=== PATIENT | female | born 1990 | race Caucasian/White ===

== ENCOUNTER 2018-02-23 03:15 | Emergency (ER) | payer OTHER ==
[~2018-02-23] VITALS: Ht 149.9 cm; Wt 51.3 kg
[2018-02-23 03:18] VITALS: BP 130/95
--- NOTE | 2018-02-23 03:27 | NUR ---
Deng sargent in [facility] - 02/23/18 at 0327 by MICKI PT TAKEN TO BED 9
--- NOTE | 2018-02-23 03:31 | NUR ---
PT TAKEN TO BED 9
--- NOTE | 2018-02-23 03:38 | NUR ---
27/F CAME IN ED WITH SIGNIFICANT OTHER, C/O 10/10 HEADACHE WITH ASSOCIATED N/V/D, X3 DAYS. PT REPORTS HAVING SIMILAR EPISODES OF HEADACHE IN THE PAST. PT REPORTS "HOT FLASHES" AND EXCESSIVE SWEATING AT NIGHT. PT ALSO REPORTS POSSIBLE STUCK TAMPON. LMP 02/20/18, PT HAS A CONTRACEPTIVE IMPLANT ON LUE. PT REPORTS TAKING EXCEDRIN 7 HRS AGO WITH LITTLE RELIEF. LUNG SOUNDS CLEAR BL. BS ACTIVE X4, ABD SOFT ROUND NONTENDER. PT DENIES MED HX, RX. ER MD MADE AWARE.
--- NOTE | 2018-02-23 03:54 | NUR ---
Dr. Quiñones evalauting patient at bedside.
--- NOTE | 2018-02-23 03:54 | NUR ---
Chapperoned during pelvic exam at this time
[2018-02-23] MEDS ORDERED: DICYCLOMINE 20 MG/2 ML VIAL IM ONE (04:00)
[2018-02-23] MEDS ORDERED: ONDANSETRON 4 MG ODT PO ONE (04:00)
[2018-02-23] MEDS ORDERED: KETOROLAC 30 MG/ML VIAL IM ONE (04:00)
--- NOTE | 2018-02-23 04:40 | NUR ---
PT RESTING COMFORTABLY IN BED, REPORTS 5/10 HEADACHE, DENIES SUPRAPUBIC CRAMPING, VSS, ER MD MADE AWARE. ALL NEEDS MET.
[2018-02-23] MEDS ORDERED: HYDROcodone/APAP 5/325 MG 1 TAB TAB PO ONE (04:50)
--- NOTE | 2018-02-23 05:28 | NUR ---
Patient discharged with v/s stable. Written and verbal after care instructions given and explained. Patient alert, oriented and verbalized understanding of instructions. Ambulatory with steady gait. All questions addressed prior to discharge. ID band removed. Patient advised to follow up with PMD. Rx of zofran odt, bentyl, norco 5-325 given. Patient educated on indication of medication including possible reaction and side effects. Opportunity to ask questions provided and answered.
--- NOTE | 2018-02-23 05:28 | NUR ---
Note katiaone in EDM - 02/23/18 at 0532 by DEION Patient discharged with v/s stable. Written and verbal after care instructions given and explained. Patient alert, oriented and verbalized understanding of instructions. Ambulatory with steady gait. All questions addressed prior to discharge. ID band removed. Patient advised to follow up with PMD. Rx of KEFLEX given. Patient educated on indication of medication including possible reaction and side effects. Opportunity to ask questions provided and answered. Pt and pt's caregiver instructed to follow up with neurosurgeon with printed results and CD tomorrow.
[2018-02-23 05:29] VITALS: BP 110/56
== END 2018-02-23 05:28 | disposition home or self-care (01) ==
LOC: MED 03:15
DX: R11.10 Vomiting, unspecified (principal); R19.7 Diarrhea, unspecified; R51 Headache
CPT/HCPCS: 81002; 81025; 96372; 99284; J0500; J1885; S0119

== ENCOUNTER 2019-01-04 06:22 | Emergency (ER) | payer SELFPAY ==
[~2019-01-04] VITALS: Ht 149.9 cm; Wt 54.4 kg
--- NOTE | 2019-01-04 06:26 | NUR ---
PT AMBULATED TO BED #1
[2019-01-04 06:30] VITALS: BP 136/89
--- NOTE | 2019-01-04 06:30 | NUR ---
Note undone in EDM - 01/04/19 at 0640 by [email or web address] PT C/O OF HEADACHE X 2 DAYS. PAIN LEVEL 10/10, THROBBING AND SENSITIVE TO LIGHT. PT ALSO C/O OF PAIN BEHIND BOTH EARS. NO REDNESS NOTED. PT STATES SHE HAS N/V/D. VOMITED X1 30 MIN AGO. EPISODE OF DIARRHEA AT 0330. PT HAS HX OF MIGRAINES. SAFETY MEASURES IN PLACE. WAITING FOR ERMD TO EVALUATE PT.
[2019-01-04] MEDS ORDERED: KETOROLAC 60 MG/2 ML VIAL IM ONE ×2 (06:45→07:11)
--- NOTE | 2019-01-04 07:12 | NUR ---
REPORT AND CARE TRANFERRED TO ROMULO ASH.
[2019-01-04 07:26] VITALS: BP 110/55
--- NOTE | 2019-01-04 07:26 | NUR ---
Patient discharged with v/s stable. Written and verbal after care instructions given and explained. Patient alert, oriented and verbalized understanding of instructions. Ambulatory with steady gait. All questions addressed prior to discharge. ID band removed. Patient advised to follow up with PMD. Rx of MOTRIN 600 MG TAB, ZOFRAN 8 MG TAB AND NORCO 5-325 MG TAB given. Patient educated on indication of medication including possible reaction and side effects. Opportunity to ask questions provided and answered.
== END 2019-01-04 07:26 | disposition home or self-care (01) ==
LOC: MED 06:22
DX: R51 Headache (principal); R11.2 Nausea with vomiting, unspecified
CPT/HCPCS: 81002; 81025; 96372; 99283; J1885

== ENCOUNTER 2019-07-16 12:15 | Emergency (ER) | payer SELFPAY ==
[~2019-07-16] VITALS: Ht 149.9 cm; Wt 49.9 kg
[2019-07-16 12:25] VITALS: BP 157/64
--- NOTE | 2019-07-16 12:49 | NUR ---
28 Y/O FEMALE PRESENTS TO ER STATING SHE WANTS TEST AND ULTRASOUND DONE TO SEE IF CONFIRMED . PT STATES SHE WAS SEEN AT [facility] MONDAY AND THEY SAID SHE WAS . DENIES PAIN. ABD SOFT, ROUND, NONTENDER TO PALP. LMP 05/21/19. DENIES VAGINAL BLEEDING. PT SITTING IN BED CALM AND PLEASANT. VSS MEDHX: DENIES ALLERGIES: NKA
--- NOTE | 2019-07-16 13:04 | NUR ---
LAB AT BEDSIDE.
[2019-07-16 13:29] LABS: BASOPHILS % (AUTO) 0.5 % (0.0-2.0); EOSINOPHILS # (AUTO) 0.1 K/uL (0-0.4); EOSINOPHILS % (AUTO) 1.5 % (0.0-4.0); HEMATOCRIT 37.1 % (36-48); HEMOGLOBIN 12.3 g/dL (12.0-16.0); LYMPHOCYTES # (AUTO) 1.4 K/uL (2.5-16.5); MEAN CORPUSCULAR HEMOGLOBIN 28 pg (27-31); MEAN CORPUSCULAR HGB CONC 33 g/dL (33-37); MEAN CORPUSCULAR VOLUME 84.1 fL (80-94); MONOCYTES # (AUTO) 0.7 K/uL (0.8-1.0); MONOCYTES % (AUTO) 8.5 % (1.7-9.3); NEUTROPHILS # (AUTO) 6.3 K/uL (1.8-7.7); NEUTROPHILS % (AUTO) 73.5 % (42.2-75.2); PLATELET COUNT (AUTO) 338 K/uL (140-450); RED BLOOD CELL COUNT(AUTO) 4.42 MIL/uL (4.20-5.40); RED CELL DISTRIBUTION WIDTH 18.8 % (11.6-13.7); WHITE BLOOD COUNT (AUTO) 8.5 K/uL (4.8-10.8)
--- NOTE | 2019-07-16 13:31 | NUR ---
ULTRASOUND AT BEDSIDE.
--- NOTE | 2019-07-16 14:00 | NUR ---
PATIENT STABLE, LYING IN BED WITH FRIEND AT BEDSIDE, NO SIGNS OF DISTRESS NOTED.
[2019-07-16 14:11] VITALS: BP 157/64
--- NOTE | 2019-07-16 14:12 | NUR ---
Patient discharged with v/s stable. Written and verbal after care instructions given and explained. Patient alert, oriented and verbalized understanding of instructions. Ambulatory with steady gait. All questions addressed prior to discharge. ID band removed. Patient advised to follow up with PMD. Rx of [employer] MULTI + DHA SOFTGEL given. Patient educated on indication of medication including possible reaction and side effects. Opportunity to ask questions provided and answered.
[2019-07-16 14:18] LABS: APPEARANCE,URINE CLEAR (CLEAR); BILIRUBIN,URINE NEGATIVE (NEGATIVE); BLOOD, URINE TRACE-I (NEGATIVE); LEUKOCYTE ESTERASE ,URINE NEGATIVE (NEGATIVE); NITRITE, URINE NEGATIVE (NEGATIVE); UGLUCOSE NEGATIVE (NEGATIVE)
[2019-07-16 14:23] LABS: COLOR,URINE YELLOW (YELLOW)
[2019-07-16 14:39] LABS: RBC,URINE 0-5 /HPF (0-5); WBC,URINE NONE SEEN /HPF (0-5)
[2019-07-16 14:40] LABS: CALCIUM OXALATE CRYSTALS,UR 0-10 /HPF (None Seen)
== END 2019-07-16 14:11 | disposition home or self-care (01) ==
LOC: MED 12:15
DX: O26.851 Spotting complicating pregnancy, first trimester (principal); Z3A.01 Less than 8 weeks gestation of pregnancy
CPT/HCPCS: 36415; 76801; 81001; 84702; 85025; 86900; 86901; 99284; Q0092

== ENCOUNTER 2019-07-21 07:26 | Emergency (ER) | payer MEDICAID ==
[~2019-07-21] VITALS: Ht 149.9 cm; Wt 49.9 kg
[2019-07-21 07:32] VITALS: BP 114/89
--- NOTE | 2019-07-21 07:38 | NUR ---
PT AMBULATED TO ER BED 08
--- NOTE | 2019-07-21 07:48 | NUR ---
DR. DUENAS AT BEDSIDE.
--- NOTE | 2019-07-21 07:55 | NUR ---
28 Y/F BIB SELF C/O DRY COUGH, BODY ACHE, UPPER BACK PAIN, CHILLS, SORE CHEST 9/10 X 2 DAY. PT ALSO C/O CRAMPING IN LOWER ABDOMEN, C/O NAUSEA, DENIES FREQUENCY, DYSURIA, VAGINAL BLEEDING OR D/C. LMP MAY 17. G-3, A-0 L-2, . NKDA RX-
--- NOTE | 2019-07-21 08:17 | NUR ---
PT REPORTS 04/04 LOW ABD CRAMPING, DR. DUENAS MADE AWARE AND WILL PUT IN ORDER FOR TYLENOL .
[2019-07-21] MEDS ORDERED: ACETAMINOPHEN EXTRA STRENGTH 500 MG TAB PO ONE (08:20)
--- NOTE | 2019-07-21 08:54 | NUR ---
Patient discharged with v/s stable. Written and verbal after care instructions given and explained. Patient alert, oriented and verbalized understanding of instructions. Ambulatory with steady gait. All questions addressed prior to discharge. ID band removed. Patient advised to follow up with PMD. Rx of ZOFRAN, TAMIFLU, AND TYLENOL given. Patient educated on indication of medication including possible reaction and side effects. Opportunity to ask questions provided and answered.
[2019-07-21 08:57] VITALS: BP 114/89
== END 2019-07-21 08:54 | disposition home or self-care (01) ==
LOC: MED 07:26
DX: O99.511 Diseases of the respiratory system complicating pregnancy, first trimester (principal); O26.91 Pregnancy related conditions, unspecified, first trimester; R05 Cough; R11.2 Nausea with vomiting, unspecified; R10.2 Pelvic and perineal pain; Z98.890 Other specified postprocedural states
CPT/HCPCS: 81002; 81025; 99283

== ENCOUNTER 2019-08-10 04:06 | Emergency (ER) | payer MEDICAID ==
[~2019-08-10] VITALS: Ht 149.9 cm; Wt 53.5 kg
[2019-08-10 04:07] VITALS: BP 126/87
--- NOTE | 2019-08-10 04:07 | NUR ---
TO BED # 02 AMBULATORY
--- NOTE | 2019-08-10 04:10 | NUR ---
CAME IN WITH C/O VAG BLEEDING STARTED AN HOUR AGO, [facility] IN [facility], 11 WEEKS, LMP 11. 29
--- NOTE | 2019-08-10 04:30 | NUR ---
SEEN AND EXAMINED BY ADITYA WITH ORDERS AND CARRIED OUT.
--- NOTE | 2019-08-10 04:40 | NUR ---
Blood for labwork drawn from [facility] . Patient tolerated WELL.
[2019-08-10 05:13] LABS: ANION GAP 15.3 (8-16); CARBON DIOXIDE 24.3 mmol/L (21-32); CREATININE 0.5 mg/dL (0.6-1.3); POTASSIUM 3.6 mmol/L (3.5-5.1)
[2019-08-10 05:50] LABS: BASOPHILS % (AUTO) 0.5 % (0.0-2.0); EOSINOPHILS # (AUTO) 0.2 K/uL (0-0.4); EOSINOPHILS % (AUTO) 2.5 % (0.0-4.0); HEMATOCRIT 36.8 % (36-48); HEMOGLOBIN 12.3 g/dL (12.0-16.0); LYMPHOCYTES # (AUTO) 1.4 K/uL (2.5-16.5); LYMPHOCYTES % (AUTO) 19.1 % (20.5-51.1); MEAN CORPUSCULAR HEMOGLOBIN 28 pg (27-31); MEAN CORPUSCULAR HGB CONC 33 g/dL (33-37); MEAN CORPUSCULAR VOLUME 84.7 fL (80-94); MONOCYTES # (AUTO) 0.5 K/uL (0.8-1.0); MONOCYTES % (AUTO) 7.6 % (1.7-9.3); NEUTROPHILS % (AUTO) 70.3 % (42.2-75.2); PLATELET COUNT (AUTO) 348 K/uL (140-450); RED BLOOD CELL COUNT(AUTO) 4.35 MIL/uL (4.20-5.40); RED CELL DISTRIBUTION WIDTH 19.7 % (11.6-13.7)
[2019-08-10 05:53] LABS: WHITE BLOOD COUNT (AUTO) 7.1 K/uL (4.8-10.8)
[2019-08-10 05:59] LABS: APPEARANCE,URINE HAZY (CLEAR); COLOR,URINE RED (YELLOW)
[2019-08-10 06:00] LABS: UGLUCOSE NEGATIVE (NEGATIVE)
[2019-08-10 06:01] LABS: BILIRUBIN,URINE NEGATIVE (NEGATIVE); BLOOD, URINE 3+ (NEGATIVE); NITRITE, URINE NEGATIVE (NEGATIVE)
[2019-08-10 06:02] LABS: LEUKOCYTE ESTERASE ,URINE NEGATIVE (NEGATIVE); RBC,URINE 20-50 /HPF (0-5); WBC,URINE 0-5 /HPF (0-5)
--- NOTE | 2019-08-10 06:10 | NUR ---
Pelvic exam performed by DR. AUGUSTE with JANET SEBASTIAN at bedside for entire examination. Patient tolerated procedure WELL. Patient assisted to position of comfort after examination.
--- NOTE | 2019-08-10 07:30 | NUR ---
ALL RESULTS BACK AND NOTED BY ERMD AND FOR DISCHARGE
[2019-08-10 07:57] VITALS: BP 120/79
--- NOTE | 2019-08-10 07:57 | NUR ---
Patient discharged with v/s stable. Written and verbal after care instructions given and explained. Patient verbalized understanding. Ambulatory with steady gait. All questions addressed prior to discharge. Advised to follow up with PMD.
== END 2019-08-10 07:57 | disposition home or self-care (01) ==
LOC: MED 04:06
DX: O23.591 Infection of other part of genital tract in pregnancy, first trimester (principal); O20.0 Threatened abortion; Z3A.11 11 weeks gestation of pregnancy; O46.91 Antepartum hemorrhage, unspecified, first trimester
CPT/HCPCS: 36415; 76817; 80048; 81001; 84702; 85025; 86900; 86901; 87210; 99284; Q0092

== ENCOUNTER 2021-06-14 07:46 | Emergency (ER) | payer MEDICAID, OTHER ==
[~2021-06-14] VITALS: Ht 154.9 cm; Wt 61.8 kg
[2021-06-14 08:00] VITALS: BP 126/71
[2021-06-14] MEDS: ACETAMINOPHEN EXTRA STRENGTH 500 MG TAB PO ONE (09:35)
[2021-06-14] MEDS: IBUPROFEN 400 MG TAB PO ONE (09:35)
[2021-06-14] MEDS: PROCHLORPERAZINE 10 MG/2 ML VIAL IVP ONE (09:35)
[2021-06-14] MEDS ORDERED: diphenhydrAMINE 50 MG CAP PO ONE (09:44)
[2021-06-14] MEDS: diphenhydrAMINE 50 MG/ML VIAL IVP ONE ×2 (09:53→11:02)
[2021-06-14 10:10] VITALS: BP 126/71
== END 2021-06-14 10:10 | disposition home or self-care (01) ==
LOC: MED 07:46
DX: G43.909 Migraine, unspecified, not intractable, without status migrainosus (principal)
CPT/HCPCS: 81002; 81025; 93005; 96374; 96375; 99284; J0780; J1200; Q0163